=== PATIENT | female | born 1930 | race Caucasian/White ===

== ENCOUNTER 2017-10-25 12:39 | Emergency (ER) | payer OTHER ==
--- OUTSIDE RECORDS SUMMARY | 2017-10-25 12:42 | XMS REPORT ---
:1930 [facility] Address [address] [place], [place] [address]mayela Vila [address] [place] [id number] Care Team Providers Name Role Phone Cosme Pritchard Unavailable Unavailable Problems This patient has no known problems. Allergies, Adverse Reactions, Alerts This patient has no known allergies or adverse reactions. Medications This patient has no known medications. Results Test Description Test Time Test Comments Text Results Atomic Results Result Comments Accuchek 2017-04-07 13:59:00 Test Item Value Reference Range Comments Accuchek (test code=ACU) 136 mg/dL 70-110 [id number] 06:01:00 Test Item Value Reference Range Comments Accuchek (test code=ACU) 133 mg/dL 70-110 [id number] 05:08:00 Test Item Value Reference Range Comments Chemistry (test code=CREATT) 0.79 mg/dL 0.6-1.1 Chemistry (test 69 Reference Range for Estimated code=EGFRMDRD) GFR: Greater than 90 mL/min/1.73 m2NOTE:The MDRD equation has not been validated for use with theelderly (over 70 years of age), women, patientswith serious comorbid condition or persons with extremes ofbody size, muscle mass, or nutritional status. Hakpjbhdjs7587-54-46 04:52:00 Test Item Value Reference Range Comments Hematology (test code=HGBT) 9.3 g/dL 12.0-16.0 Hematology (test code=HCTT) 28.6 % 36.0-47.0 Hematology (test code=PLTT) 436 thou/uL 130-400 Gofeifmr5912-65-51 00:46:00 Test Item Value Reference Range Comments Accuchek (test code=ACU) 141 mg/dL 70-110 [id number] 18:25:00 Test Item Value Reference Range Comments Accuchek (test code=ACU) 133 mg/dL 70-110 Ceyuncjj7631-94-23 18:25:00 Test Item Value Reference Range Comments Accuchek (test code=ACU) 169 mg/dL 70-110 Vdfadxqx5028-48-40 18:25:00 Test Item Value Reference Range Comments Accuchek (test code=ACU) 119 mg/dL 70-110 Vlkspppo7936-90-31 18:25:00 Test Item Value Reference Range Comments Accuchek (test code=ACU) 143 mg/dL 70-110 Hiakcydi9573-25-09 18:25:00 Test Item Value Reference Range Comments Accuchek (test code=ACU) 178 mg/dL 70-110 [id number] 20:39:00 Test Item Value Reference Range Comments Accuchek (test code=ACU) 125 mg/dL 70-110 Vdccmvmn5573-09-64 08:36:00 Test Item Value Reference Range Comments Accuchek (test code=ACU) 144 mg/dL 70-110 Itevsxyn0653-70-84 08:36:00 Test Item Value Reference Range Comments Accuchek (test code=ACU) 141 mg/dL 70-110 Fnyjzymw3152-00-13 08:36:00 Test Item Value Reference Range Comments Accuchek (test code=ACU) 149 mg/dL 70-110 Culture, Tnynj5737-10-55 14:21:00 Test Item Value Reference Range Comments Culture, Blood (test code=BC) NG5 Inzmhsbzm3447-62-39 06:55:00 Test Item Value Reference Range Comments Chemistry (test code=CREATT) 0.74 mg/dL 0.6-1.1 Chemistry (test 75 Reference Range for Estimated code=EGFRMDRD) GFR: Greater than 90 mL/min/1.73 m2NOTE:The MDRD equation has not been validated for use with theelderly (over 70 years of age), women, patientswith serious comorbid condition or persons with extremes ofbody size, muscle mass, or nutritional status. [id number] 06:24:00 Test Item Value Reference Range Comments Hematology (test code=HGBT) 8.2 g/dL 12.0-16.0 Hematology (test code=HCTT) 24.4 % 36.0-47.0 Hematology (test code=PLTT) 376 thou/uL 130-400 Yfvydhlt4915-86-54 06:17:00 Test Item Value Reference Range Comments Accuchek (test code=ACU) 106 mg/dL 70-110 Rnhgerxs9075-30-16 00:16:00 Test Item Value Reference Range Comments Accuchek (test code=ACU) 144 mg/dL 70-110 [id number] 17:28:00 Test Item Value Reference Range Comments Accuchek (test code=ACU) 137 mg/dL 70-110 Lulmmevv2809-67-68 11:35:00 Test Item Value Reference Range Comments Accuchek (test code=ACU) 170 mg/dL 70-110 Jhlpkwys1412-60-40 06:13:00 Test Item Value Reference Range Comments Accuchek (test code=ACU) 114 mg/dL 70-110 [id number] 00:24:00 Test Item Value Reference Range Comments Accuchek (test code=ACU) 135 mg/dL 70-110 Yashyzosb3174-65-11 07:25:00 Test Item Value Reference Range Comments Chemistry (test code=CREATT) 0.71 mg/dL 0.6-1.1 Chemistry (test 78 Reference Range for Estimated code=EGFRMDRD) GFR: Greater than 90 mL/min/1.73 m2NOTE:The MDRD equation has not been validated for use with theelderly (over 70 years of age), women, patientswith serious comorbid condition or persons with extremes ofbody size, muscle mass, or nutritional status. Ptqqpmeuss0236-56-54 07:02:00 Test Item Value Reference Range Comments Hematology (test code=HGBT) 8.7 g/dL 12.0-16.0 Hematology (test code=HCTT) 26.6 % 36.0-47.0 Hematology (test code=PLTT) 366 thou/uL 130-400 Wzjpxsqx5204-02-00 06:43:00 Test Item Value Reference Range Comments Accuchek (test code=ACU) 102 mg/dL 70-110 Fxrnlnrm9918-23-98 00:31:00 Test Item Value Reference Range Comments Accuchek (test code=ACU) 143 mg/dL 70-110 Fohzppps8469-14-95 17:36:00 Test Item Value Reference Range Comments Accuchek (test code=ACU) 122 mg/dL 70-110 Ocwzezrh3753-33-52 11:11:00 Test Item Value Reference Range Comments Accuchek (test code=ACU) 165 mg/dL 70-110 Nvckwdpv0497-89-18 09:40:00 Test Item Value Reference Range Comments Accuchek (test code=ACU) 95 mg/dL 70-110 [id number] 01:58:00 Test Item Value Reference Range Comments Accuchek (test code=ACU) 140 mg/dL 70-110 Pkecftpu3174-54-72 18:19:00 Test Item Value Reference Range Comments Accuchek (test code=ACU) 133 mg/dL 70-110 Keojsrrt7737-74-52 13:00:00 Test Item Value Reference Range Comments Accuchek (test code=ACU) 155 mg/dL 70-110 [id number] 05:59:00 Test Item Value Reference Range Comments Chemistry (test code=NA-T) 133 mmol/L 136-145 Chemistry (test code=K-T) 3.8 mmol/L 3.5-5.1 Chemistry (test code=CL) 104 mmol/L 98-107 Chemistry (test code=CO2) 23 mmol/L 23-31 Chemistry (test code=ANGP) 10 mmol/L 10-20 Chemistry (test code=BUN) 22 mg/dL 9.8-20.1 Chemistry (test code=CREATT) 0.74 mg/dL 0.6-1.1 Chemistry (test 75 Reference Range for Estimated code=EGFRMDRD) GFR: Greater than 90 mL/min/1.73 m2NOTE:The MDRD equation has not been validated for use with theelderly (over 70 years of age), women, patientswith serious comorbid condition or persons with extremes ofbody size, muscle mass, or nutritional status. Chemistry (test code=GLU-T) 159 mg/dL 83-110 Chemistry (test code=CA) 8.4 mg/dL 7.8-10.44 Chemistry (test code=TBILI) 0.4 mg/dL 0.2-1.2 Chemistry (test code=TP) 6.4 g/dL 6.0-8.3 Chemistry (test code=ALB) 2.7 g/dL 3.4-4.8 Chemistry (test code=GLOB) 3.7 g/dL 2.4-3.5 Chemistry (test code=AG) 0.7 g/dL 1.2-2.2 Chemistry (test code=ALP) 102 U/L 40-150 Chemistry (test code=AST) 17 U/L 5-34 Chemistry (test code=ALT) 16 U/L 8-55 [id number] 05:46:00 Test Item Value Reference Range Comments Accuchek (test code=ACU) 166 mg/dL 70-110 Zdodlyubzy6184-76-33 05:31:00 Test Item Value Reference Range Comments Hematology (test code=HGBT) 8.8 g/dL 12.0-16.0 Hematology (test code=HCTT) 25.8 % 36.0-47.0 Hematology (test code=PLTT) 339 thou/uL 130-400 Dcdgcsiqzh4069-75-74 05:28:00 Test Item Value Reference Range Comments Hematology (test code=WBCT) 9.5 thou/uL 4.8-10.8 Hematology (test code=RBCT) 2.85 mill/uL 4.20-5.40 Hematology (test code=HGBT) 8.8 g/dL 12.0-16.0 Hematology (test code=HCTT) 25.6 % 36.0-47.0 Hematology (test code=MCV) 90.1 fl 81.0-99.0 Hematology (test code=MCH) 31.0 pg 27.0-31.0 Hematology (test code=MCHC) 34.4 g/dL 32.0-36.0 Hematology (test code=RDW) 15.2 % 11.5-14.5 Hematology (test code=PLTT) 331 thou/uL 130-400 Hematology (test code=MPV) 6.1 fL 7.4-10.4 Hematology (test code=%NEUT) 75.8 % 42.0-75.0 Hematology (test code=%LYMPH) 10.9 % 21.0-51.0 Hematology (test code=%MONO) 11.4 % 0.0-10.0 Hematology (test code=%EOS) 1.5 % 0.0-10.0 Hematology (test code=%BASO) 0.4 % 0.0-1.0 Hematology (test code=NEUT#) 7.2 thou/uL 1.40-6.50 Hematology (test code=LYMPH#) 1.0 thou/uL 1.20-3.40 Hematology (test code=MONO#) 1.1 thou/uL 0.11-0.59 Hematology (test code=EOS#) 0.1 thou/uL 0.0-0.7 Hematology (test code=BASO#) 0.0 thou/uL 0.0-0.2 [id number] 05:25:00 Test Item Value Reference Range Comments Accuchek (test code=ACU) 151 mg/dL 70-110 [id number] 18:43:00 Test Item Value Reference Range Comments Chemistry (test 0.021 ng/mL < 0.028 code=TROPI-T) Reference Range 0.00 - 0.028 ng/mL Negative 0.029 - 0.29 ng/mL Indeterminate Greater or Equal to 0.3 ng/mL Strongly suggests [place] [id number] 18:02:00 Test Item Value Reference Range Comments Accuchek (test code=ACU) 127 mg/dL 70-110 [id number] 16:42:00 Test Item Value Reference Range Comments Accuchek (test code=ACU) 166 mg/dL 70-110 Ltagbebta5638-81-24 13:59:00 Test Item Value Reference Range Comments Chemistry (test 0.016 ng/mL < 0.028 code=TROPI-T) Reference Range 0.00 - 0.028 ng/mL Negative 0.029 - 0.29 ng/mL Indeterminate Greater or Equal to 0.3 ng/mL Strongly suggests [place] Khyyidszg9695-06-79 13:37:00 Test Item Value Reference Range Comments Chemistry (test 0.7 ng/mL 0-6.6 code=CKMBM-T) Chemistry (test 0.010 ng/mL < 0.028 code=TROPI-T) Reference Range 0.00 - 0.028 ng/mL Negative 0.029 - 0.29 ng/mL Indeterminate Greater or Equal to 0.3 ng/mL Strongly suggests [place] [id number] 13:28:00 Test Item Value Reference Range Comments Coagulation (test 16.3 SEC 12.0-14.7 code=PT-T) Coagulation (test 1.3 ATTENTION: READ code=INR) CAREFULLY -The recommended therapeutic ranges for oral anticoagulanttreatments are: Low Intensity: 1.5 - 2.0 Moderate Intensity: 2.0 - 3.0 High Intensity (1): 2.5 - 3.5 High Intensity (2): 3.0 - 4.0 CRITICAL: > 4.0 Coagulation (test 34.2 SEC 22.9-36.1 code=PTT) Anticoagulant? OTHER; SEE HBRXRRPVAgkaopgnb0947-35-89 13:23:00 Test Item Value Reference Range Comments Chemistry (test code=NA-T) 131 mmol/L 136-145 Chemistry (test code=K-T) 4.1 mmol/L 3.5-5.1 Chemistry (test code=CL) 101 mmol/L 98-107 Chemistry (test code=CO2) 22 mmol/L 23-31 Chemistry (test code=ANGP) 12 mmol/L 10-20 Chemistry (test code=BUN) 22 mg/dL 9.8-20.1 Chemistry (test code=CREATT) 0.71 mg/dL 0.6-1.1 Chemistry (test 78 Reference Range for Estimated code=EGFRMDRD) GFR: Greater than 90 mL/min/1.73 m2NOTE:The MDRD equation has not been validated for use with theelderly (over 70 years of age), women, patientswith serious comorbid condition or persons with extremes ofbody size, muscle mass, or nutritional status. Chemistry (test code=GLU-T) 178 mg/dL 83-110 Chemistry (test code=CA) 8.5 mg/dL 7.8-10.44 Chemistry (test code=TBILI) 0.4 mg/dL 0.2-1.2 Chemistry (test code=TP) 6.9 g/dL 6.0-8.3 Chemistry (test code=ALB) 2.9 g/dL 3.4-4.8 Chemistry (test code=GLOB) 4.0 g/dL 2.4-3.5 Chemistry (test code=AG) 0.7 g/dL 1.2-2.2 Chemistry (test code=ALP) 106 U/L 40-150 Chemistry (test code=AST) 23 U/L 5-34 Chemistry (test code=ALT) 19 U/L 8-55 Chemistry - BNP, HgbA1c, [id number] 13:22:00 Test Item Value Reference Range Comments Chemistry - BNP, HgbA1c, PTHi (test code=BNP) 523.5 pg/mL 0-100 [id number] 12:54:00 Test Item Value Reference Range Comments Hematology (test code=WBCT) 12.7 thou/uL 4.8-10.8 Hematology (test code=RBCT) 3.22 mill/uL 4.20-5.40 Hematology (test code=HGBT) 9.6 g/dL 12.0-16.0 Hematology (test code=HCTT) 29.2 % 36.0-47.0 Hematology (test code=MCV) 90.5 fl 81.0-99.0 Hematology (test code=MCH) 29.8 pg 27.0-31.0 Hematology (test code=MCHC) 33.0 g/dL 32.0-36.0 Hematology (test code=RDW) 15.5 % 11.5-14.5 Hematology (test code=PLTT) 398 thou/uL 130-400 Hematology (test code=MPV) 6.5 fL 7.4-10.4 Hematology (test code=%NEUT) 88.3 % 42.0-75.0 Hematology (test code=%LYMPH) 4.6 % 21.0-51.0 Hematology (test code=%MONO) 6.2 % 0.0-10.0 Hematology (test code=%EOS) 0.6 % 0.0-10.0 Hematology (test code=%BASO) 0.2 % 0.0-1.0 Hematology (test code=NEUT#) 11.2 thou/uL 1.40-6.50 Hematology (test code=LYMPH#) 0.6 thou/uL 1.20-3.40 Hematology (test code=MONO#) 0.8 thou/uL 0.11-0.59 Hematology (test code=EOS#) 0.1 thou/uL 0.0-0.7 Hematology (test code=BASO#) 0.0 thou/uL 0.0-0.2 [id number] 11:20:00 Test Item Value Reference Range Comments Accuchek (test code=ACU) 178 mg/dL 70-110 Tsrxyblu6660-66-57 06:10:00 Test Item Value Reference Range Comments Accuchek (test code=ACU) 141 mg/dL 70-110 Xynmxpas9740-97-37 00:31:00 Test Item Value Reference Range Comments Accuchek (test code=ACU) 135 mg/dL 70-110 [id number] 16:48:00 Test Item Value Reference Range Comments Accuchek (test code=ACU) 129 mg/dL 70-110 [id number] 11:16:00 Test Item Value Reference Range Comments Accuchek (test code=ACU) 161 mg/dL 70-110 Lzsbdtma1772-90-76 06:17:00 Test Item Value Reference Range Comments Accuchek (test code=ACU) 134 mg/dL 70-110 Ewuujnvj4701-60-84 00:52:00 Test Item Value Reference Range Comments Accuchek (test code=ACU) 137 mg/dL 70-110 Bazskbsf5539-43-90 18:38:00 Test Item Value Reference Range Comments Accuchek (test code=ACU) 145 mg/dL 70-110 Uifkoyug0045-02-81 12:49:00 Test Item Value Reference Range Comments Accuchek (test code=ACU) 118 mg/dL 70-110 [id number] 06:25:00 Test Item Value Reference Range Comments Chemistry (test code=NA-T) 139 mmol/L 136-145 Chemistry (test code=K-T) 3.6 mmol/L 3.5-5.1 Chemistry (test code=CL) 106 mmol/L 98-107 Chemistry (test code=CO2) 26 mmol/L 23-31 Chemistry (test code=ANGP) 11 mmol/L 10-20 Chemistry (test code=BUN) 22 mg/dL 9.8-20.1 Chemistry (test code=CREATT) 0.70 mg/dL 0.6-1.1 Chemistry (test 80 Reference Range for Estimated code=EGFRMDRD) GFR: Greater than 90 mL/min/1.73 m2NOTE:The MDRD equation has not been validated for use with theelderly (over 70 years of age), women, patientswith serious comorbid condition or persons with extremes ofbody size, muscle mass, or nutritional status. Chemistry (test code=BCR) 31.43 Chemistry (test code=GLU-T) 114 mg/dL 83-110 Chemistry (test code=CA) 8.3 mg/dL 7.8-10.44 Chemistry (test code=ALB) 2.7 g/dL 3.4-4.8 Chemistry (test code=PHOS) 2.9 mg/dL 2.3-4.7 Bljnbpjqj0299-27-24 06:25:00 Test Item Value Reference Range Comments Chemistry (test code=MG) 1.9 mg/dL 1.6-2.6 Ataynxtafh0937-37-25 06:08:00 Test Item Value Reference Range Comments Hematology (test code=HGBT) 9.3 g/dL 12.0-16.0 Hematology (test code=HCTT) 28.4 % 36.0-47.0 Hematology (test code=PLTT) 377 thou/uL 130-400 Nqlxtarc7933-53-30 05:50:00 Test Item Value Reference Range Comments Accuchek (test code=ACU) 125 mg/dL 70-110 [id number] 23:30:00 Test Item Value Reference Range Comments Accuchek (test code=ACU) 117 mg/dL 70-110 [id number] 18:12:00 Test Item Value Reference Range Comments Accuchek (test code=ACU) 133 mg/dL 70-110 Culture, [id number] 14:36:00 Test Item Value Reference Range Comments Culture, Urine (test code=URC) NG36 Ysegsyxk5033-97-19 11:32:00 Test Item Value Reference Range Comments Accuchek (test code=ACU) 96 mg/dL 70-110 Qebcjzco9164-12-01 05:52:00 Test Item Value Reference Range Comments Accuchek (test code=ACU) 100 mg/dL 70-110 [id number] 05:02:00 Test Item Value Reference Range Comments Chemistry (test code=NA-T) 136 mmol/L 136-145 Chemistry (test code=K-T) 3.5 mmol/L 3.5-5.1 Chemistry (test code=CL) 104 mmol/L 98-107 Chemistry (test code=CO2) 25 mmol/L 23-31 Chemistry (test code=ANGP) 11 mmol/L 10-20 Chemistry (test code=BUN) 22 mg/dL 9.8-20.1 Chemistry (test code=CREATT) 0.64 mg/dL 0.6-1.1 Chemistry (test 88 Reference Range for Estimated code=EGFRMDRD) GFR: Greater than 90 mL/min/1.73 m2NOTE:The MDRD equation has not been validated for use with theelderly (over 70 years of age), women, patientswith serious comorbid condition or persons with extremes ofbody size, muscle mass, or nutritional status. Chemistry (test code=GLU-T) 116 mg/dL 83-110 Chemistry (test code=CA) 8.1 mg/dL 7.8-10.44 Npvyisqmyb5562-57-16 04:53:00 Test Item Value Reference Range Comments Hematology (test code=WBCT) 7.0 thou/uL 4.8-10.8 Hematology (test code=RBCT) 2.99 mill/uL 4.20-5.40 Hematology (test code=HGBT) 8.9 g/dL 12.0-16.0 Hematology (test code=HCTT) 26.9 % 36.0-47.0 Hematology (test code=MCV) 90.1 fl 81.0-99.0 Hematology (test code=MCH) 29.9 pg 27.0-31.0 Hematology (test code=MCHC) 33.2 g/dL 32.0-36.0 Hematology (test code=RDW) 15.4 % 11.5-14.5 Hematology (test code=PLTT) 318 thou/uL 130-400 Hematology (test code=MPV) 6.1 fL 7.4-10.4 Hematology (test code=%NEUT) 73.4 % 42.0-75.0 Hematology (test code=%LYMPH) 11.6 % 21.0-51.0 Hematology (test code=%MONO) 9.0 % 0.0-10.0 Hematology (test code=%EOS) 5.4 % 0.0-10.0 Hematology (test code=%BASO) 0.5 % 0.0-1.0 Hematology (test code=NEUT#) 5.1 thou/uL 1.40-6.50 Hematology (test code=LYMPH#) 0.8 thou/uL 1.20-3.40 Hematology (test code=MONO#) 0.6 thou/uL 0.11-0.59 Hematology (test code=EOS#) 0.4 thou/uL 0.0-0.7 Hematology (test code=BASO#) 0.0 thou/uL 0.0-0.2 [id number] 00:26:00 Test Item Value Reference Range Comments Accuchek (test code=ACU) 116 mg/dL 70-110 Istcyfay1718-78-07 18:27:00 Test Item Value Reference Range Comments Accuchek (test code=ACU) 132 mg/dL 70-110 Qpdvilpe2178-20-40 12:06:00 Test Item Value Reference Range Comments Accuchek (test code=ACU) 148 mg/dL 70-110 Ilwmjmzq4544-34-49 06:07:00 Test Item Value Reference Range Comments Accuchek (test code=ACU) 152 mg/dL 70-110 [id number] 05:34:00 Test Item Value Reference Range Comments Chemistry (test 0.036 ng/mL < 0.028 code=TROPI-T) Reference Range 0.00 - 0.028 ng/mL Negative 0.029 - 0.29 ng/mL Indeterminate Greater or Equal to 0.3 ng/mL Strongly suggests [place] Zdiezyhvtc1604-78-32 03:40:00 Test Item Value Reference Range Comments Urinalysis (test code=UACLR) YELLOW Yellow Urinalysis (test code=UACLY) CLEAR Clear Urinalysis (test code=SPGR) 1.015 1.002-1.036 Urinalysis (test code=DAFNE) 7.5 5.0-9.0 Urinalysis (test code=UALEU) Negative Negative Urinalysis (test code=UANIT) Negative Negative Urinalysis (test code=PROUADIP) Trace mg/dL Neg-Trace Urinalysis (test code=GLUCU) Negative mg/dL Negative Urinalysis (test code=KETU) Negative mg/dL Negative Urinalysis (test code=UAUROB) 0.2 mg/dL 0.2-1.0 Urinalysis (test code=UABIL) Negative Negative Urinalysis (test code=UABLD) Trace Negative Urinalysis (test code=UARBC) 4-6 HPF 0-3 Urinalysis (test code=UAWBC) None Seen HPF 0-3 Urinalysis (test code=UASQUAM) None Seen HPF 0-3 Urinalysis (test code=UABAC) None Seen HPF None Seen Urinalysis (test code=UACAST) 0-3 HYALINE CAST LPF 0-3 Hyaline Comment patient arrived to floor with foleyUrine Source: Urine Snow MhnswalfRttncmxvl5956-64-07 02:18:00 Test Item Value Reference Range Comments Chemistry (test 134 mmol/L 136-145 code=NA-T) Chemistry (test code=K-T) 3.5 mmol/L 3.5-5.1 Chemistry (test code=CL) 103 mmol/L 98-107 Chemistry (test code=CO2) 21 mmol/L 23-31 Chemistry (test 14 mmol/L 10-20 code=ANGP) Chemistry (test code=BUN) 28 mg/dL 9.8-20.1 Chemistry (test 0.62 mg/dL 0.6-1.1 code=CREATT) Chemistry (test Greater than 90 Reference Range for code=EGFRMDRD) Estimated GFR: Greater than 90 mL/min/1.73 m2NOTE:The MDRD equation has not been validated for use with theelderly (over 70 years of age), women, patientswith serious comorbid condition or persons with extremes ofbody size, muscle mass, or nutritional status. Chemistry (test 105 mg/dL 83-110 code=GLU-T) Chemistry (test code=CA) 8.3 mg/dL 7.8-10.44 Chemistry (test 0.3 mg/dL 0.2-1.2 code=TBILI) Chemistry (test code=TP) 6.3 g/dL 6.0-8.3 Chemistry (test code=ALB) 2.8 g/dL 3.4-4.8 Chemistry (test 3.5 g/dL 2.4-3.5 code=GLOB) Chemistry (test code=AG) 0.8 g/dL 1.2-2.2 Chemistry (test code=ALP) 90 U/L 40-150 Chemistry (test code=AST) 34 U/L 5-34 Chemistry (test code=ALT) 41 U/L 8-55 [id number] 02:14:00 Test Item Value Reference Range Comments Chemistry (test 0.041 ng/mL < 0.028 code=TROPI-T) Reference Range 0.00 - 0.028 ng/mL Negative 0.029 - 0.29 ng/mL Indeterminate Greater or Equal to 0.3 ng/mL Strongly suggests [place] Ucvmbqsdiv7714-14-60 01:49:00 Test Item Value Reference Range Comments Hematology (test code=WBCT) 9.2 thou/uL 4.8-10.8 Hematology (test code=RBCT) 3.20 mill/uL 4.20-5.40 Hematology (test code=HGBT) 9.3 g/dL 12.0-16.0 Hematology (test code=HCTT) 28.6 % 36.0-47.0 Hematology (test code=MCV) 89.3 fl 81.0-99.0 Hematology (test code=MCH) 29.0 pg 27.0-31.0 Hematology (test code=MCHC) 32.5 g/dL 32.0-36.0 Hematology (test code=RDW) 15.1 % 11.5-14.5 Hematology (test code=PLTT) 338 thou/uL 130-400 Hematology (test code=MPV) 6.1 fL 7.4-10.4 Hematology (test code=%NEUT) 76.9 % 42.0-75.0 Hematology (test code=%LYMPH) 11.6 % 21.0-51.0 Hematology (test code=%MONO) 6.6 % 0.0-10.0 Hematology (test code=%EOS) 4.7 % 0.0-10.0 Hematology (test code=%BASO) 0.2 % 0.0-1.0 Hematology (test code=NEUT#) 7.0 thou/uL 1.40-6.50 Hematology (test code=LYMPH#) 1.1 thou/uL 1.20-3.40 Hematology (test code=MONO#) 0.6 thou/uL 0.11-0.59 Hematology (test code=EOS#) 0.4 thou/uL 0.0-0.7 Hematology (test code=BASO#) 0.0 thou/uL 0.0-0.2
[2017-10-25 13:51] LABS: Urine Blood NEGATIVE (NEG); Urine Glucose NEGATIVE (NEG); Urine Protein NEGATIVE (NEG); Urine Specific Gravity 1.015 (1.005-1.030)
--- NOTE | 2017-10-25 14:42 | RAD REPORT ---
EXAM DESCRIPTION: RAD - Chest Single View - 10/25/2017 2:07 pm CLINICAL HISTORY: Cough and congestion COMPARISON: October 21 TECHNIQUE: AP portable chest image was obtained 1357 hours . FINDINGS: Lung volumes are low. Right hemithorax volume is further reduced due to patient rotation. Lung markings are not substantially different. There is continued reticulonodular opacification throu ghout much of the right lung field. No new mass or consolidation. No failure finding. Heart and vascu lature are normal. No measurable pleural effusion and no pneumothorax. No gross bony abnormality seen . No acute aortic finding. Right-side mediastinum is accentuated by the respiratory and rotation yariel facts. IMPRESSION: Prominent reticulonodular opacification pattern of the right lung field similar to prior imaging. No new or progressive finding from October 21.
[2017-10-25 15:00] LABS: Absolute Lymphocytes (CBC) 0.7 K/uL (0.7-4.9); Absolute Neutrophil 8.1 K/uL (1.8-8.0); Basophils % 0.7 % (0-1.3); Eosinophils % 1.6 % (0-4.4); Hematocrit 33.4 % (36.0-45.0); Lymphocytes % 6.7 % (15.3-44.8); MCH 30.5 pg (27.0-35.0); MCV 89.3 fL (80-100); MPV 7.8 fL (7.6-11.3); RBC Red Blood Cell Count 3.74 M/uL (3.86-4.86)
[2017-10-25 15:04] LABS: Protime INR 1.56
[2017-10-25 15:18] LABS: Potassium 4.7 mEq/L (3.6-5.0)
[2017-10-25 15:24] LABS: Albumin 3.6 g/dL (3.2-5.5); Bilirubin Direct 0.1 mg/dL (0-0.2); Bilirubin Total 0.7 mg/dL (0.3-1.2); Blood Morphology Comment NOT SEEN (NOT SEEN); Platelet Estimate ADEQ; Protein, Total 7.7 g/dL (6.0-8.3); Urine White Blood Cell Casts OK
--- NOTE | 2017-10-25 15:53 | EDPHYS ---
Physician Documentation [facility] Name: Ghislaine Sanchez Age: 86 yrs Sex: Female : 1930 Arrival Date: 10/25/2017 Time: 12:43 Bed 24 Private MD: ED Physician Jose Fuentes HPI: 10/25 13:50 This 86 yrs old Female presents to ER via Wheelchair with complaints of Back rn Pain. 13:50 The patient presents with pain that is acute. The symptoms are located in the low back. rn The pain does not radiate. Associated signs and symptoms: Pertinent positives: weakness, cough. Severity of symptoms: At their worst the symptoms were mild, in the emergency department the symptoms are unchanged. The patient has experienced similar episodes in the past. Report cough, finished abx last week, got better, now coughing again, hx of pneumonias and aspiration, no oral intake, + intermittent fever, had normal cxr 3 days ago, seen by pcp today, told to come here for further eval. . Historical: - Allergies: 13:14 Sulfa (Sulfonamide Antibiotics); lk1 - Home Meds: 15:29 levothyroxine 25 mcg oral tab 1 tab once daily [Active]; Eliquis 2.5 mg Oral tab 1 tab tl3 2 times per day [Active]; levalbuterol HCl 0.63 mg/3 mL inhalation nebu 3 mL every 8 hours [Active]; Administer all PO tabs/caps to G-tube [Active]; Multaq 400 mg oral tab 1 tab 2 times per day [Active]; clonazepam 0.5 mg Oral tab 1 tab 2 times per day [Active]; bupropion HCl 100 mg Oral tab 1 tab [Active]; amoxicillin-pot clavulanate 600-42.9 mg/5 mL oral susr twice a day [Active]; - PMHx: 13:14 ADD/ADHD; Anemia; Atrial Fib; CVA; Dementia; DYSPHAGIA; High Cholesterol; Hypertension; lk1 Hypothyroidism; Myocardial infarction; peptic ulcer; - PSHx: 13:14 malou mastectomy; G-tube; lk1 - Immunization history:: Adult Immunizations up to date. - Social history:: Smoking status: Patient/guardian denies using tobacco. - Family history:: not pertinent. - Hospitalizations: : No recent hospitalization is reported. ROS: 13:50 Constitutional: Negative for chills, and weight loss, Eyes: Negative for injury, pain, rn redness, and discharge, Neck: Negative for injury, pain, and swelling, Cardiovascular: Negative for chest pain, palpitations, and edema, Respiratory: Negative for wheezing, and pleuritic chest pain, Abdomen/GI: Negative for abdominal pain, nausea, vomiting, diarrhea, and constipation, Back: Negative for injury MS/Extremity: Negative for injury and deformity, Skin: Negative for injury, rash, and discoloration, Neuro: Negative for headache, numbness, tingling, and seizure. Exam: 13:50 Constitutional: This is a well developed, well nourished patient who is awake, alert, rn and in no acute distress. Head/Face: Normocephalic, atraumatic. Eyes: Pupils equal round and reactive to light, extra-ocular motions intact. Lids and lashes normal. Conjunctiva and sclera are non-icteric and not injected. Cornea within normal limits. Periorbital areas with no swelling, redness, or edema. Neck: Trachea midline, no thyromegaly or masses palpated, and no cervical lymphadenopathy. Supple, full range of motion without nuchal rigidity, or vertebral point tenderness. No Meningismus. Cardiovascular: Regular rate and rhythm with a normal S1 and S2. No gallops, murmurs, or rubs. Normal PMI, no JVD. No pulse deficits. Respiratory: Lungs have equal breath sounds bilaterally, clear to auscultation and percussion. No rales, rhonchi or wheezes noted. No increased work of breathing, no retractions or nasal flaring. Abdomen/GI: Soft, non-tender, with normal bowel sounds. No distension or tympany. No guarding or rebound. No evidence of tenderness throughout. + mild amount of clear/white drainage from PEG tube stoma. MS/ Extremity: Pulses equal, no cyanosis. Neurovascular intact. Full, normal range of motion. Equal circumference. Neuro: Awake and alert, GCS 15, oriented to person, and situation. Motor strength 5/5 in all extremities. Sensory grossly intact. Vital Signs: 13:15 BP 105 / 52; Pulse 96; Resp 15; Temp 97.6(TE); Pulse Ox 96% on R/A; Weight 49.9 kg (R); lk1 Height 5 ft. 3 in. (160.02 cm) (R); Pain 5/10; 14:30 BP 121 / 56; Pulse 94; Resp 16; Pulse Ox 98% on R/A; tl3 15:29 BP 120 / 59; Pulse 82; Resp 18; Pulse Ox 98% on R/A; tl3 13:15 Body Mass Index 19.49 (49.90 kg, 160.02 cm) lk1 MDM: 13:28 Patient medically screened. rn 15:51 Differential diagnosis: chronic back pain, UTI, dehydration, pneumonia, chronic rn aspiration. Data reviewed: vital signs, nurses notes, lab test result(s), radiologic studies, plain films, and as a result, I will discharge patient. Counseling: I had a detailed discussion with the patient and/or guardian regarding: the historical points, exam findings, and any diagnostic results supporting the discharge/admit diagnosis, lab results, radiology results, the need for outpatient follow up, to return to the emergency department if symptoms worsen or persist or if there are any questions or concerns that arise at home. Special discussion: I discussed with the patient/guardian in detail that at this point there is no indication for admission to the hospital. It is understood, however, that if the symptoms persist or worsen the patient needs to return immediately for re-evaluation. ED course: CXR without acute change, UA normal, + mild dehydration, improved with fluids, may explain thick phlegm, also patient already on abx, will f/u with pcp. . 10/25 13:47 Order name: Urine Dipstick--Ancillary (enter results); Complete Time: 14:53 bd 10/25 13:49 Order name: CBC with Diff; Complete Time: 15:36 rn 10/25 13:29 Order name: XRAY Chest (1 view); Complete Time: 14:53 rn 10/25 13:49 Order name: Basic Metabolic Panel; Complete Time: 15:36 rn 10/25 13:49 Order name: Procalcitonin; Complete Time: 15:47 rn 10/25 13:49 Order name: Blood Culture Adult (2) rn 10/25 13:50 Order name: PT-INR; Complete Time: 15:36 rn 10/25 13:50 Order name: Ptt, Activated; Complete Time: 15:36 rn 10/25 13:50 Order name: LFT's; Complete Time: 15:36 rn 10/25 15:04 Order name: CBC Smear Scan; Complete Time: 15:36 EDMS 10/25 13:29 Order name: Urine Dipstick-Ancillary (obtain specimen); Complete Time: 15:37 rn 10/25 13:49 Order name: IV Start; Complete Time: 15:37 rn Administered Medications: 15:54 Drug: NS 0.9% 500 ml Route: IV; Rate: bolus; Site: right antecubital; tl3 16:37 Follow up: IV Status: Completed infusion; IV Intake: 500ml tl3 Disposition: 10/25/17 15:53 Discharged to Home. Impression: Dehydration. - Condition is Stable. - Discharge Instructions: Dehydration, Elderly. - Medication Reconciliation Form, Thank You Letter, Antibiotic Education, Prescription Opioid Use form. - Follow up: Private Physician; When: As needed; Reason: Recheck today's complaints, Re-evaluation by your physician. - Problem is new. - Symptoms have improved. Signatures: Dispatcher [employer] EDMS Jose Fuentes MD MD rn Kluge, Leah RN RN lk1 Sherry Campo, RACHELL RN tl3 Corrections: (The following items were deleted from the chart) 15:37 13:29 UA MICROSCOPIC+U.LAB.BRZ ordered. EDMS EDMS 15:37 13:29 Urine Culture+BA.LAB.BRZ ordered. EDMS EDMS
--- NOTE | 2017-10-25 15:53 | ER ---
Nurse's Notes [facility] Name: Ghislaine Sanchez Age: 86 yrs Sex: Female : 1930 Arrival Date: 10/25/2017 Time: 12:43 Bed 24 Private MD: Diagnosis: Dehydration Presentation: 10/25 13:11 Presenting complaint: Child states: "She has a feeding tube. She has been coughing a lk1 lot and is not able to swallow phlegm. Dr. Valencia had her Xrayed last Tuesday. She has a pain in her back when she breaths in. Her urine is dark and smells bad. We just wanted to check her out for pneumonia.". Transition of care: patient was not received from another setting of care. Onset of symptoms was October 11, 2017. Care prior to arrival: None. 13:11 Method Of Arrival: Wheelchair lk1 13:11 Acuity: SHELDON 3 lk1 Triage Assessment: 13:14 General: Appears in no apparent distress. Behavior is calm, cooperative, appropriate lk1 for age. Pain: Complains of pain in right flank Pain currently is 5 out of 10 on a pain scale. Musculoskeletal: Swelling absent. Historical: - Allergies: 13:14 Sulfa (Sulfonamide Antibiotics); lk1 - Home Meds: 15:29 levothyroxine 25 mcg oral tab 1 tab once daily [Active]; Eliquis 2.5 mg Oral tab 1 tab tl3 2 times per day [Active]; levalbuterol HCl 0.63 mg/3 mL inhalation nebu 3 mL every 8 hours [Active]; Administer all PO tabs/caps to G-tube [Active]; Multaq 400 mg oral tab 1 tab 2 times per day [Active]; clonazepam 0.5 mg Oral tab 1 tab 2 times per day [Active]; bupropion HCl 100 mg Oral tab 1 tab [Active]; amoxicillin-pot clavulanate 600-42.9 mg/5 mL oral susr twice a day [Active]; - PMHx: 13:14 ADD/ADHD; Anemia; Atrial Fib; CVA; Dementia; DYSPHAGIA; High Cholesterol; Hypertension; lk1 Hypothyroidism; Myocardial infarction; peptic ulcer; - PSHx: 13:14 malou mastectomy; G-tube; lk1 - Immunization history:: Adult Immunizations up to date. - Social history:: Smoking status: Patient/guardian denies using tobacco. - Family history:: not pertinent. - Hospitalizations: : No recent hospitalization is reported. Screenin:48 Abuse screen: Denies threats or abuse. Nutritional screening: No deficits noted. tl3 Tuberculosis screening: No symptoms or risk factors identified. Fall Risk None identified. Assessment: 13:48 General: Appears in no apparent distress. comfortable, slender, well groomed, well tl3 developed, well nourished, Behavior is calm, cooperative, appropriate for age. Pain: Denies pain. Neuro: Level of Consciousness is awake, alert, obeys commands, Oriented to person, place, time, situation, Appropriate for age. Cardiovascular: Heart tones S1 S2 present. Respiratory: Breath sounds are clear bilaterally. with crackles noted to the right base. GI: Bowel sounds present X 4 quads. : No signs and/or symptoms were reported regarding the genitourinary system. Urine is clear. EENT: No signs and/or symptoms were reported regarding the EENT system. Derm: Musculoskeletal: No signs and/or symptoms reported regarding the musculoskeletal system. 14:30 Reassessment: Patient appears in no apparent distress at this time. No changes from tl3 previously documented assessment. Patient and/or family updated on plan of care and expected duration. Pain level reassessed. Patient is alert, oriented x 3, equal unlabored respirations, skin warm/dry/pink. Vital Signs: 13:15 BP 105 / 52; Pulse 96; Resp 15; Temp 97.6(TE); Pulse Ox 96% on R/A; Weight 49.9 kg (R); lk1 Height 5 ft. 3 in. (160.02 cm) (R); Pain 5/10; 14:30 BP 121 / 56; Pulse 94; Resp 16; Pulse Ox 98% on R/A; tl3 15:29 BP 120 / 59; Pulse 82; Resp 18; Pulse Ox 98% on R/A; tl3 13:15 Body Mass Index 19.49 (49.90 kg, 160.02 cm) lk1 ED Course: 12:43 Patient arrived in ED. mr 13:13 Triage completed. lk1 13:17 Arm band placed on right wrist. lk1 13:28 Jose Fuentes MD is Attending Physician. rn 13:48 Alber, Sherry, RN is Primary Nurse. tl3 13:48 No apparent distress. Resting quietly. tl3 13:48 Patient has correct armband on for positive identification. Placed in gown. Bed in low tl3 position. Call light in reach. Side rails up X 1. Adult w/ patient. Pulse ox on. NIBP on. Warm blanket given. 13:48 No provider procedures requiring assistance completed. tl3 13:51 X-ray(s) taken. tl3 14:00 XRAY Chest (1 view) In Process Unspecified. EDMS 14:01 Note: tolerated x ray, not appropriate dressed for cxr , best images obtained. 14:30 Initial lab(s) drawn, by me, sent to lab. Inserted saline lock: 22 gauge in right tl3 antecubital area, using aseptic technique. Blood collected. 19:12 IV discontinued, intact, bleeding controlled, No redness/swelling at site. Pressure tl3 dressing applied. Administered Medications: 15:54 Drug: NS 0.9% 500 ml Route: IV; Rate: bolus; Site: right antecubital; tl3 16:37 Follow up: IV Status: Completed infusion; IV Intake: 500ml tl3 Intake: 16:37 IV: 500ml; Total: 500ml. tl3 Outcome: 15:53 Discharge ordered by . rn 16:37 Patient left the ED. tl3 19:12 Discharged to home via wheelchair. tl3 19:12 Condition: stable 19:12 Discharge instructions given to patient, family, Instructed on discharge instructions, follow up and referral plans. Demonstrated understanding of instructions, follow-up care, stressed importance of staying hydrated Signatures: Dispatcher [employer] [facility] Jovita Gentile Roman, MD MD rn Warren, Shannon sw Kluge, Leah, RN RN lk1 Sherry Campo, RN RN tl3 Corrections: (The following items were deleted from the chart) 14:12 13:48 Respiratory: Breath sounds are clear bilaterally. tl3 tl3
[2017-10-25] MEDS ORDERED: NA CHLORIDE 0.9% 500 ML ONE (16:09)
[2017-10-25 16:48] VITALS: TEMP 97.6
[2017-10-25 16:49] VITALS: O2SAT 98
[2017-10-25 16:50] VITALS: BP 120/59
== END 2017-10-25 16:37 | disposition home or self-care (01) ==
LOC: ER 12:39
DX: F03.90 Unspecified dementia, unspecified severity, without behavioral disturbance, psychotic disturbance, mood disturbance, and anxiety; I25.2 Old myocardial infarction; I10 Essential (primary) hypertension; Z86.73 Personal history of transient ischemic attack (TIA), and cerebral infarction without residual deficits; E86.0 Dehydration; Z88.2 Allergy status to sulfonamides; E78.00 Pure hypercholesterolemia, unspecified; M54.5 Low back pain; I48.91 Unspecified atrial fibrillation; Z79.02 Long term (current) use of antithrombotics/antiplatelets; E03.9 Hypothyroidism, unspecified
CPT/HCPCS: 36415; 71045; 80048; 80076; 81003; 84145; 85025; 85610; 85730; 87040; 96360; 99284

== ENCOUNTER 2018-02-18 12:52 | Emergency (ER) | payer OTHER ==
--- OUTSIDE RECORDS SUMMARY | 2018-02-18 12:55 | XMS REPORT ---
:1930 [facility] Address [address] [place], [place] [address]mayela Vila [address] [place] [id number] Care Team Providers Name Role Phone Aly Pritchard Unavailable Unavailable Problems This patient has no known problems. Allergies, Adverse Reactions, Alerts This patient has no known allergies or adverse reactions. Medications This patient has no known medications. Results Test Description Test Time Test Comments Text Results Atomic Results Result Comments Accuchek 2017-04-07 13:59:00 Test Item Value Reference Range Comments Accuchek (test code=ACU) 136 mg/dL 70-110 [id number] 06:01:00 Test Item Value Reference Range Comments Accuchek (test code=ACU) 133 mg/dL 70-110 [id number] 05:08:00 Test Item Value Reference Range Comments Chemistry (test code=CREATT) 0.79 mg/dL 0.6-1.1 Chemistry (test 69 Reference Range for Estimated code=EGFRMDRD) GFR: Greater than 90 mL/min/1.73 m2NOTE:The MDRD equation has not been validated for use with theelderly (over 70 years of age), women, patientswith serious comorbid condition or persons with extremes ofbody size, muscle mass, or nutritional status. [id number] 04:52:00 Test Item Value Reference Range Comments Hematology (test code=HGBT) 9.3 g/dL 12.0-16.0 Hematology (test code=HCTT) 28.6 % 36.0-47.0 Hematology (test code=PLTT) 436 thou/uL 130-400 [id number] 00:46:00 Test Item Value Reference Range Comments Accuchek (test code=ACU) 141 mg/dL 70-110 [id number] 18:25:00 Test Item Value Reference Range Comments Accuchek (test code=ACU) 133 mg/dL 70-110 [id number] 18:25:00 Test Item Value Reference Range Comments Accuchek (test code=ACU) 169 mg/dL 70-110 [id number] 18:25:00 Test Item Value Reference Range Comments Accuchek (test code=ACU) 119 mg/dL 70-110 [id number] 18:25:00 Test Item Value Reference Range Comments Accuchek (test code=ACU) 143 mg/dL 70-110 [id number] 18:25:00 Test Item Value Reference Range Comments Accuchek (test code=ACU) 178 mg/dL 70-110 [id number] 20:39:00 Test Item Value Reference Range Comments Accuchek (test code=ACU) 125 mg/dL 70-110 [id number] 08:36:00 Test Item Value Reference Range Comments Accuchek (test code=ACU) 144 mg/dL 70-110 [id number] 08:36:00 Test Item Value Reference Range Comments Accuchek (test code=ACU) 141 mg/dL 70-110 [id number] 08:36:00 Test Item Value Reference Range Comments Accuchek (test code=ACU) 149 mg/dL 70-110 Culture, [id number] 14:21:00 Test Item Value Reference Range Comments Culture, Blood (test code=BC) NG5 [id number] 06:55:00 Test Item Value Reference Range Comments Chemistry (test code=CREATT) 0.74 mg/dL 0.6-1.1 Chemistry (test 75 Reference Range for Estimated code=EGFRMDRD) GFR: Greater than 90 mL/min/1.73 m2NOTE:The MDRD equation has not been validated for use with theelderly (over 70 years of age), women, patientswith serious comorbid condition or persons with extremes ofbody size, muscle mass, or nutritional status. [id number] 06:24:00 Test Item Value Reference Range Comments Hematology (test code=HGBT) 8.2 g/dL 12.0-16.0 Hematology (test code=HCTT) 24.4 % 36.0-47.0 Hematology (test code=PLTT) 376 thou/uL 130-400 [id number] 06:17:00 Test Item Value Reference Range Comments Accuchek (test code=ACU) 106 mg/dL 70-110 [id number] 00:16:00 Test Item Value Reference Range Comments Accuchek (test code=ACU) 144 mg/dL 70-110 [id number] 17:28:00 Test Item Value Reference Range Comments Accuchek (test code=ACU) 137 mg/dL 70-110 [id number] 11:35:00 Test Item Value Reference Range Comments Accuchek (test code=ACU) 170 mg/dL 70-110 [id number] 06:13:00 Test Item Value Reference Range Comments Accuchek (test code=ACU) 114 mg/dL 70-110 [id number] 00:24:00 Test Item Value Reference Range Comments Accuchek (test code=ACU) 135 mg/dL 70-110 [id number] 07:25:00 Test Item Value Reference Range Comments Chemistry (test code=CREATT) 0.71 mg/dL 0.6-1.1 Chemistry (test 78 Reference Range for Estimated code=EGFRMDRD) GFR: Greater than 90 mL/min/1.73 m2NOTE:The MDRD equation has not been validated for use with theelderly (over 70 years of age), women, patientswith serious comorbid condition or persons with extremes ofbody size, muscle mass, or nutritional status. [id number] 07:02:00 Test Item Value Reference Range Comments Hematology (test code=HGBT) 8.7 g/dL 12.0-16.0 Hematology (test code=HCTT) 26.6 % 36.0-47.0 Hematology (test code=PLTT) 366 thou/uL 130-400 [id number] 06:43:00 Test Item Value Reference Range Comments Accuchek (test code=ACU) 102 mg/dL 70-110 [id number] 00:31:00 Test Item Value Reference Range Comments Accuchek (test code=ACU) 143 mg/dL 70-110 [id number] 17:36:00 Test Item Value Reference Range Comments Accuchek (test code=ACU) 122 mg/dL 70-110 [id number] 11:11:00 Test Item Value Reference Range Comments Accuchek (test code=ACU) 165 mg/dL 70-110 [id number] 09:40:00 Test Item Value Reference Range Comments Accuchek (test code=ACU) 95 mg/dL 70-110 [id number] 01:58:00 Test Item Value Reference Range Comments Accuchek (test code=ACU) 140 mg/dL 70-110 [id number] 18:19:00 Test Item Value Reference Range Comments Accuchek (test code=ACU) 133 mg/dL 70-110 [id number] 13:00:00 Test Item Value Reference Range Comments Accuchek (test code=ACU) 155 mg/dL 70-110 [id number] 05:59:00 Test Item Value Reference Range Comments [...] 5-34 Chemistry (test code=ALT) 16 U/L 8-55 [id number] 05:46:00 Test Item Value Reference Range Comments Accuchek (test code=ACU) 166 mg/dL 70-110 Aooeslefku0773-57-15 05:31:00 Test Item Value Reference Range Comments Hematology (test code=HGBT) 8.8 g/dL 12.0-16.0 Hematology (test code=HCTT) 25.8 % 36.0-47.0 Hematology (test code=PLTT) 339 thou/uL 130-400 [id number] 05:28:00 Test Item Value Reference Range Comments [...] 0.0-0.7 Hematology (test code=BASO#) 0.0 thou/uL 0.0-0.2 [id number] 05:25:00 Test Item Value Reference Range Comments Accuchek (test code=ACU) 151 mg/dL 70-110 [id number] 18:43:00 Test Item Value Reference Range Comments Chemistry (test 0.021 ng/mL < 0.028 code=TROPI-T) Reference Range 0.00 - 0.028 ng/mL Negative 0.029 - 0.29 ng/mL Indeterminate Greater or Equal to 0.3 ng/mL Strongly suggests [facility] [id number] 18:02:00 Test Item Value Reference Range Comments Accuchek (test code=ACU) 127 mg/dL 70-110 [id number] 16:42:00 Test Item Value Reference Range Comments Accuchek (test code=ACU) 166 mg/dL 70-110 [id number] 13:59:00 Test Item Value Reference Range Comments Chemistry (test 0.016 ng/mL < 0.028 code=TROPI-T) Reference Range 0.00 - 0.028 ng/mL Negative 0.029 - 0.29 ng/mL Indeterminate Greater or Equal to 0.3 ng/mL Strongly suggests [facility] [id number] 13:37:00 Test Item Value Reference Range Comments Chemistry (test 0.7 ng/mL 0-6.6 code=CKMBM-T) Chemistry (test 0.010 ng/mL < 0.028 code=TROPI-T) Reference Range 0.00 - 0.028 ng/mL Negative 0.029 - 0.29 ng/mL Indeterminate Greater or Equal to 0.3 ng/mL Strongly suggests [facility] [id number] 13:28:00 Test Item Value Reference Range Comments Coagulation (test 16.3 SEC 12.0-14.7 code=PT-T) Coagulation (test 1.3 ATTENTION: READ code=INR) CAREFULLY -The recommended therapeutic ranges for oral anticoagulanttreatments are: Low Intensity: 1.5 - 2.0 Moderate Intensity: 2.0 - 3.0 High Intensity (1): 2.5 - 3.5 High Intensity (2): 3.0 - 4.0 CRITICAL: > 4.0 Coagulation (test 34.2 SEC 22.9-36.1 code=PTT) Anticoagulant? OTHER; SEE [id number] 13:23:00 Test Item Value Reference Range Comments [...] 19 U/L 8-55 Chemistry - BNP, HgbA1c, [id number] 13:22:00 Test Item Value Reference Range Comments Chemistry - BNP, HgbA1c, PTHi (test code=BNP) 523.5 pg/mL 0-100 [id number] 12:54:00 Test Item Value Reference Range Comments [...] 0.0-0.7 Hematology (test code=BASO#) 0.0 thou/uL 0.0-0.2 [id number] 11:20:00 Test Item Value Reference Range Comments Accuchek (test code=ACU) 178 mg/dL 70-110 [id number] 06:10:00 Test Item Value Reference Range Comments Accuchek (test code=ACU) 141 mg/dL 70-110 [id number] 00:31:00 Test Item Value Reference Range Comments Accuchek (test code=ACU) 135 mg/dL 70-110 [id number] 16:48:00 Test Item Value Reference Range Comments Accuchek (test code=ACU) 129 mg/dL 70-110 [id number] 11:16:00 Test Item Value Reference Range Comments Accuchek (test code=ACU) 161 mg/dL 70-110 [id number] 06:17:00 Test Item Value Reference Range Comments Accuchek (test code=ACU) 134 mg/dL 70-110 [id number] 00:52:00 Test Item Value Reference Range Comments Accuchek (test code=ACU) 137 mg/dL 70-110 [id number] 18:38:00 Test Item Value Reference Range Comments Accuchek (test code=ACU) 145 mg/dL 70-110 [id number] 12:49:00 Test Item Value Reference Range Comments Accuchek (test code=ACU) 118 mg/dL 70-110 [id number] 06:25:00 Test Item Value Reference Range Comments [...] 3.4-4.8 Chemistry (test code=PHOS) 2.9 mg/dL 2.3-4.7 [id number] 06:25:00 Test Item Value Reference Range Comments Chemistry (test code=MG) 1.9 mg/dL 1.6-2.6 [id number] 06:08:00 Test Item Value Reference Range Comments Hematology (test code=HGBT) 9.3 g/dL 12.0-16.0 Hematology (test code=HCTT) 28.4 % 36.0-47.0 Hematology (test code=PLTT) 377 thou/uL 130-400 Qggqrtxy7762-01-09 05:50:00 Test Item Value Reference Range Comments Accuchek (test code=ACU) 125 mg/dL 70-110 [id number] 23:30:00 Test Item Value Reference Range Comments Accuchek (test code=ACU) 117 mg/dL 70-110 [id number] 18:12:00 Test Item Value Reference Range Comments Accuchek (test code=ACU) 133 mg/dL 70-110 Culture, [id number] 14:36:00 Test Item Value Reference Range Comments Culture, Urine (test code=URC) NG36 [id number] 11:32:00 Test Item Value Reference Range Comments Accuchek (test code=ACU) 96 mg/dL 70-110 Ieujvite9806-17-34 05:52:00 Test Item Value Reference Range Comments Accuchek (test code=ACU) 100 mg/dL 70-110 [id number] 05:02:00 Test Item Value Reference Range Comments [...] 83-110 Chemistry (test code=CA) 8.1 mg/dL 7.8-10.44 [id number] 04:53:00 Test Item Value Reference Range Comments [...] 0.0-0.7 Hematology (test code=BASO#) 0.0 thou/uL 0.0-0.2 [id number] 00:26:00 Test Item Value Reference Range Comments Accuchek (test code=ACU) 116 mg/dL 70-110 [id number] 18:27:00 Test Item Value Reference Range Comments Accuchek (test code=ACU) 132 mg/dL 70-110 [id number] 12:06:00 Test Item Value Reference Range Comments Accuchek (test code=ACU) 148 mg/dL 70-110 [id number] 06:07:00 Test Item Value Reference Range Comments Accuchek (test code=ACU) 152 mg/dL 70-110 [id number] 05:34:00 Test Item Value Reference Range Comments Chemistry (test 0.036 ng/mL < 0.028 code=TROPI-T) Reference Range 0.00 - 0.028 ng/mL Negative 0.029 - 0.29 ng/mL Indeterminate Greater or Equal to 0.3 ng/mL Strongly suggests [facility] [id number] 03:40:00 Test Item Value Reference Range Comments [...] to floor with foleyUrine Source: Urine Snow [id number] 02:18:00 Test Item Value Reference Range Comments [...] 5-34 Chemistry (test code=ALT) 41 U/L 8-55 [id number] 02:14:00 Test Item Value Reference Range Comments Chemistry (test 0.041 ng/mL < 0.028 code=TROPI-T) Reference Range 0.00 - 0.028 ng/mL Negative 0.029 - 0.29 ng/mL Indeterminate Greater or Equal to 0.3 ng/mL Strongly suggests [facility] [id number] 01:49:00 Test Item Value Reference Range Comments [...]
[2018-02-18] MEDS ORDERED: NA CHLORIDE 0.9% 500 ML ONE ×2 (13:20→16:09)
--- NOTE | 2018-02-18 14:14 | RAD REPORT ---
EXAM DESCRIPTION: CT - Abdomen Pelvis Wo Contrast - 02/18/2018 1:47 pm CLINICAL HISTORY: Abdominal pain for 2 weeks COMPARISON: April 2017 TECHNIQUE: Computed axial tomography of the abdomen and pelvis was obtained. IV and oral contrast we re not requested. All CT scans are performed using dose optimization technique as appropriate and may include automated exposure control or mA/KV adjustment according to patient size. FINDINGS: The evaluation of solid organs, vessels and bowel is limited secondary to the lack of con trast administration. The liver, spleen, pancreas, adrenals and kidneys appear grossly normal. A gastrostomy tube is in place. There is no evidence of diverticulitis. Spondylosis involves lumbar spine resulting in spinal stenosis Mild left pleural thickening is seen. Mild tree-in-bud opacities are present within the right lower l obe IMPRESSION: No acute abnormality is displayed involving the abdomen Mild tree-in-bud opacities within the right lower lobe may indicate an atypical infection or pneumoni tis
--- NOTE | 2018-02-18 14:18 | RAD REPORT ---
EXAM DESCRIPTION: Maria De Jesus Single View02/18/2018 2:03 pm CLINICAL HISTORY: abd pain COMPARISON: September 2017 FINDINGS: Diffuse reticulonodular opacities within the right lung are unchanged. The left lung appears clear of acute infiltrate. The heart is mildly enlarged
[2018-02-18 14:33] LABS: Absolute Monocytes 0.9 K/uL (0.1-1.3)
[2018-02-18 14:40] LABS: Absolute Lymphocytes (CBC) 0.9 K/uL (0.7-4.9); Absolute Neutrophil 6.7 K/uL (1.8-8.0); Basophils % 0.7 % (0-1.3); Hematocrit 33.2 % (36.0-45.0); Lymphocytes % 9.9 % (15.3-44.8); MCH 30.1 pg (27.0-35.0); MCV 88.6 fL (80-100); MPV 8.1 fL (7.6-11.3); Monocytes % 10.1 % (3.3-12.3); RBC Red Blood Cell Count 3.75 M/uL (3.86-4.86)
[2018-02-18 14:42] LABS: Albumin 3.1 g/dL (3.4-5.0); Bilirubin Direct 0.1 mg/dL (0-0.2); Bilirubin Total 0.7 mg/dL (0.2-1.0); Potassium 4.7 mmol/L (3.5-5.1); Protein, Total 7.5 g/dL (6.4-8.2)
[2018-02-18] MEDS ORDERED: AZITHROMYCIN 500 MG/250 ML BAG ONE (14:46)
[2018-02-18] MEDS ORDERED: CEFTRIAXONE/SWI 1gm 1 GM/10 ML SYR ONE (14:46)
[2018-02-18 15:13] LABS: Blood Morphology Comment NOT SEEN (NOT SEEN); Platelet Estimate ADEQ; Urine White Blood Cell Casts OK
--- NOTE | 2018-02-18 15:15 | EDPHYS ---
Physician Documentation [facility] Name: Ghislaine Sanchez Age: 87 yrs Sex: Female : 1930 Arrival Date: 02/18/2018 Time: 12:54 Bed 18 Private MD: ED Physician Jose Fuentes HPI: 02/18 13:46 This 87 yrs old Female presents to ER via EMS with complaints of abdominal rn pain. 14:05 The patient presents with abdominal pain in the left upper quadrant. Onset: The rn symptoms/episode began/occurred 2 week(s) ago. The symptoms do not radiate. Associated signs and symptoms:. Modifying factors: The symptoms are alleviated by nothing, the symptoms are aggravated by nothing. Severity of pain: At its worst the pain was mild in the emergency department the pain is unchanged. The patient has experienced similar episodes in the past. Reports a few weeks of abd pain, seen twice by GI, [facility] office, given abx once, no change, seen again and told was acid reflux, but unable to fill meds due to insurance issues, comes in for persistent abd pain located around feeding tube, no fever, + generalized weakness and sleepiness, no vomiting, also report hard to use feeding tube as of today. . Historical: - Allergies: 13:04 Sulfa (Sulfonamide Antibiotics); em - Home Meds: 13:04 levothyroxine 25 mcg tab 1 tab once daily [Active]; Eliquis 2.5 mg Oral tab 1 tab 2 em times per day [Active]; clonazepam 0.5 mg Oral tab 1 tab daily [Active]; bupropion HCl 100 mg Oral tab 1 tab [Active]; Administer all PO tabs/caps to G-tube [Active]; escitalopram oxalate 10 mg oral tab 1 tab once daily [Active]; temazepam 15 mg Oral cap as needed [Active]; Multaq 400 mg Oral tab 1 tab 2 times per day [Active]; - PMHx: 13:04 peptic ulcer; ADD/ADHD; Anemia; Atrial Fib; CVA; Dementia; DYSPHAGIA; High Cholesterol; em Hypertension; Hypothyroidism; Myocardial infarction; - Immunization history:: Adult Immunizations up to date. - Social history:: Smoking status: unknown. - Ebola Screening: : Patient negative for fever greater than or equal to 101.5 degrees Fahrenheit, and additional compatible Ebola Virus Disease symptoms Patient denies exposure to infectious person Patient denies travel to an Ebola-affected area in the 21 days before illness onset No symptoms or risks identified at this time. - Family history:: not pertinent. - Hospitalizations: : No recent hospitalization is reported. ROS: 14:05 Constitutional: Negative for fever, chills, and weight loss, Eyes: Negative for injury, rn pain, redness, and discharge, Cardiovascular: Negative for chest pain, palpitations, and edema, Respiratory: Negative for shortness of breath, cough, wheezing, and pleuritic chest pain, Abdomen/GI: Negative for vomiting, diarrhea, and constipation, MS/Extremity: Negative for injury and deformity, Skin: Negative for injury, rash, and discoloration, Neuro: Negative for headache, numbness, tingling, and seizure. Exam: 14:05 Constitutional: This is a well developed, well nourished patient who is somnolent, but rn awakens to voice Head/Face: Normocephalic, atraumatic. Eyes: Pupils equal round and reactive to light, extra-ocular motions intact. Lids and lashes normal. Conjunctiva and sclera are non-icteric and not injected. Cornea within normal limits. Periorbital areas with no swelling, redness, or edema. ENT: dry MM Cardiovascular: Regular rate and rhythm with a normal S1 and S2. No gallops, murmurs, or rubs. Normal PMI, no JVD. No pulse deficits. Respiratory: Lungs have equal breath sounds bilaterally, clear to auscultation and percussion. No rales, rhonchi or wheezes noted. No increased work of breathing, no retractions or nasal flaring. Abdomen/GI: soft, mild tenderness LUQ, seems to be isolated around feeding tube stoma, mild erythema of surrounding stoma skin, no purulence, no fluctuance MS/ Extremity: Pulses equal, no cyanosis. Neurovascular intact. Neuro: Somnolent, awakens to voice, moves all 4 extremities but with diffuse weakness. Vital Signs: 13:04 BP 93 / 57; Pulse 88; Resp 18; Temp 98.3; Pulse Ox 96% on R/A; Weight 65.77 kg; Height em 5 ft. 6 in. (167.64 cm); Pain 1/10; 14:20 BP 104 / 50; Pulse 84; Resp 16; Pulse Ox 97% on R/A; em 15:15 BP 100 / 57; Pulse 87; Resp 20; Pulse Ox 98% on R/A; em 15:53 BP 97 / 56; Pulse 84; em 16:00 BP 88 / 56; Pulse 82; Resp 17; Pulse Ox 98% on R/A; Pain 0/10; em 17:00 BP 106 / 54; Pulse 92; Resp 18; Pulse Ox 99% on R/A; Pain 0/10; em 13:04 Body Mass Index 23.40 (65.77 kg, 167.64 cm) em MDM: 13:03 Patient medically screened. rn 15:12 Differential diagnosis: bowel obstruction, gastritis, gastroesophageal reflux disease, rn non-specific abd pain, Peptic Ulcer Disease, urinary tract infection, pneumonia. Data reviewed: vital signs, nurses notes, lab test result(s), EKG, radiologic studies, CT scan, plain films, and as a result, I will admit patient. Counseling: I had a detailed discussion with the patient and/or guardian regarding: the historical points, exam findings, and any diagnostic results supporting the discharge/admit diagnosis, lab results, radiology results, the need for further work-up and treatment in the hospital. Response to treatment: the patient's symptoms have mildly improved after treatment, and as a result, I will admit patient. Admission orders: after a detailed discussion of the patient's condition and case, the admit orders are written by me. ED course: Pt now reports mild cough recently, cxr and ct shows possible RLL pneumonia, given weakness will admit to Dr. Roach, urine clear. . 15:45 ED course: Pt initially admitted to Dr. Roach, she evaluated patient, had discussion rn with patient and family, they decided together to be discharged home with generic reglan, she determined opacities in right lung chronic, did not recommend outpt treatment with abx. . 02/18 13:14 Order name: Basic Metabolic Panel; Complete Time: 14:44 rn 02/18 13:14 Order name: CBC with Diff rn 02/18 13:14 Order name: Hepatic Function; Complete Time: 14:44 rn 02/18 13:14 Order name: Lipase; Complete Time: 14:44 rn 02/18 13:14 Order name: Urine Microscopic Only rn 02/18 13:14 Order name: Procalcitonin; Complete Time: 15:12 rn 02/18 13:14 Order name: Lactate; Complete Time: 15:12 rn 02/18 13:14 Order name: CT Abd/Pelvis - Without Cont; Complete Time: 14:23 rn 02/18 13:14 Order name: XRAY Chest (1 view); Complete Time: 14:23 rn 02/18 13:14 Order name: Blood Culture Adult (2) rn 02/18 13:14 Order name: Urine Culture rn 02/18 14:41 Order name: CBC Smear Scan EDMS 02/18 15:13 Order name: Urine Dipstick--Ancillary (enter results) bd 02/18 13:14 Order name: IV Start; Complete Time: 14:20 rn 02/18 13:14 Order name: Labs collected and sent; Complete Time: 14:20 rn 02/18 13:14 Order name: Urine Dipstick-Ancillary (obtain specimen); Complete Time: 14:51 rn 02/18 13:14 Order name: EKG; Complete Time: 13:15 rn 02/18 13:14 Order name: EKG - Nurse/Tech; Complete Time: 14:19 rn Administered Medications: 14:19 Drug: NS 0.9% 500 ml Route: IV; Rate: bolus; Site: right forearm; em 16:26 Follow up: IV Status: Completed infusion; IV Intake: 500ml em 15:00 Drug: Rocephin - (cefTRIAXone) 1 grams Route: IVPB; Infused Over: 30 mins; Site: right iw forearm; 15:28 Follow up: IV Status: Completed infusion; IV Intake: 10ml em 15:10 Drug: AZITHromycin 500 mg Route: IVPB; Infused Over: 1 hrs; Site: right forearm; iw 16:25 Follow up: Response: No adverse reaction; IV Status: Completed infusion; IV Intake: em 250ml 16:10 Drug: NS 0.9% 500 ml Route: IV; Rate: bolus; Site: right forearm; em 17:18 Follow up: IV Status: Completed infusion; IV Intake: 500ml em Disposition: 02/18/18 15:48 Discharged to Home. Impression: Unspecified abdominal pain, Weakness, Gastro-esophageal reflux disease. - Condition is Stable. - Discharge Instructions: Abdominal Pain, Adult, Gastroesophageal Reflux Disease, Adult, Weakness. - Prescriptions for metoclopramide HCl 5 mg/5 mL Oral solution - take 5 milliliter by ORAL route 4 times per day 30 minutes before meals and at bedtime; 600 milliliter. - Medication Reconciliation Form, Thank You Letter, Antibiotic Education, Prescription Opioid Use form. - Follow up: Private Physician; When: As needed; Reason: Recheck today's complaints, Re-evaluation by your physician. - Problem is an ongoing problem. - Symptoms have improved. Signatures: Dispatcher [employer] EDDillon Neely, MEAT INSPECTOR MEAT INSPECTOR em Linsey Morfin, RN RN Jose Reyes MD MD corn detasseler: (The following items were deleted from the chart) 15:46 15:14 Hospitalization Ordered by Luisa Roach MD for Inpatient Admission. Preliminary rn diagnosis is Pneumonia; Weakness; Dehydration. Bed requested for Telemetry/MedSurg (Inpatient). Status is Inpatient Admission. Condition is Stable. Problem is new. Symptoms have improved. UTI on Admission? No. rn 17:21 15:48 02/18/2018 15:48 Discharged to Home. Impression: Unspecified abdominal pain; em Weakness; Gastro-esophageal reflux disease. Condition is Stable. Forms are Medication Reconciliation Form, Thank You Letter, Antibiotic Education, Prescription Opioid Use. Follow up: Private Physician; When: As needed; Reason: Recheck today's complaints, Re-evaluation by your physician. Problem is an ongoing problem. Symptoms have improved. rn
--- NOTE | 2018-02-18 15:15 | ER ---
Nurse's Notes [facility] Name: Ghislaine Sanchez Age: 87 yrs Sex: Female : 1930 Arrival Date: 02/18/2018 Time: 12:54 Bed 18 Private MD: Diagnosis: Unspecified abdominal pain;Weakness;Gastro-esophageal reflux disease Presentation: 02/18 12:54 Presenting complaint: EMS states: called out for ABD pain x 2 weeks, was evaluated by em this week, family concerned for confusion and distention, pt has PEG tube in placed. Transition of care: patient was not received from another setting of care. Onset of symptoms was February 04, 2018. Risk Assessment: Do you want to hurt yourself or someone else? Patient reports no desire to harm self or others. Initial Sepsis Screen: Does the patient meet any 2 criteria? No. Patient's initial sepsis screen is negative. Does the patient have a suspected source of infection? No. Patient's initial sepsis screen is negative. 12:54 Method Of Arrival: EMS: [facility] em 12:54 Care prior to arrival: None. em 12:54 Acuity: SHELDON 3 iw Triage Assessment: 13:04 General: Appears in no apparent distress. comfortable, Behavior is calm, cooperative. em Pain: Complains of pain in abdomen Pain currently is 1 out of 10 on a pain scale. Historical: - Allergies: 13:04 Sulfa (Sulfonamide Antibiotics); em - Home Meds: 13:04 levothyroxine 25 mcg tab 1 tab once daily [Active]; Eliquis 2.5 mg Oral tab 1 tab 2 em times per day [Active]; clonazepam 0.5 mg Oral tab 1 tab daily [Active]; bupropion HCl 100 mg Oral tab 1 tab [Active]; Administer all PO tabs/caps to G-tube [Active]; escitalopram oxalate 10 mg oral tab 1 tab once daily [Active]; temazepam 15 mg Oral cap as needed [Active]; Multaq 400 mg Oral tab 1 tab 2 times per day [Active]; - PMHx: 13:04 peptic ulcer; ADD/ADHD; Anemia; Atrial Fib; CVA; Dementia; DYSPHAGIA; High Cholesterol; em Hypertension; Hypothyroidism; Myocardial infarction; - Immunization history:: Adult Immunizations up to date. - Social history:: Smoking status: unknown. - Ebola Screening: : Patient negative for fever greater than or equal to 101.5 degrees Fahrenheit, and additional compatible Ebola Virus Disease symptoms Patient denies exposure to infectious person Patient denies travel to an Ebola-affected area in the 21 days before illness onset No symptoms or risks identified at this time. - Family history:: not pertinent. - Hospitalizations: : No recent hospitalization is reported. Screenin:05 Abuse screen: no apparent signs noted. Nutritional screening: No deficits noted. em Tuberculosis screening: No symptoms or risk factors identified. Fall Risk None identified. Assessment: 13:09 General: Appears in no apparent distress. comfortable, Behavior is calm, cooperative. em Pain: Complains of pain in abdomen Pain currently is 1 out of 10 on a pain scale. Neuro: Level of Consciousness is awake, alert, obeys commands, Oriented to person, place, time. Cardiovascular: Capillary refill < 3 seconds Patient's skin is warm and dry. Respiratory: Airway is patent Respiratory effort is even, unlabored, Respiratory pattern is regular, symmetrical, Breath sounds are clear bilaterally. GI: Abdomen is round distended, Bowel sounds present X 4 quads. Abd is soft and non tender X 4 quads. Parent/caregiver reports the patient having nausea, vomiting. : No signs and/or symptoms were reported regarding the genitourinary system. EENT: No signs and/or symptoms were reported regarding the EENT system. Derm: Skin is intact, Skin is pink, warm \T\ dry. Musculoskeletal: Range of motion: intact in all extremities. 13:25 Reassessment: Patient appears in no apparent distress at this time. I agree with above iw assessment by Dillon Braden LVN. 14:40 Reassessment: Patient appears in no apparent distress at this time. Patient and/or em family updated on plan of care and expected duration. Pain level reassessed. Patient is alert, oriented x 3, equal unlabored respirations, skin warm/dry/pink. family at bedside. 15:00 Reassessment: Patient appears in no apparent distress at this time. Patient and/or iw family updated on plan of care and expected duration. Pain level reassessed. Patient is alert, oriented x 3, equal unlabored respirations, skin warm/dry/pink. changed pt brief, aspirated PEG tube, gastric contents returned, flushed with 30ml water Patient denies pain at this time. 16:00 Reassessment: Patient appears in no apparent distress at this time. Patient and/or em family updated on plan of care and expected duration. Pain level reassessed. Patient is alert, oriented x 3, equal unlabored respirations, skin warm/dry/pink. pending completion of antibiotic, pt BP 88/56, RH 82, 98% RA, denies pain, Dr. Fuentes notified of BP, new orders received for repeat NS 500 ml bolus. 17:20 Reassessment: report called to Herbert at [facility]. em Vital Signs: 13:04 BP 93 / 57; Pulse 88; Resp 18; Temp 98.3; Pulse Ox 96% on R/A; Weight 65.77 kg; Height em 5 ft. 6 in. (167.64 cm); Pain 1/10; 14:20 BP 104 / 50; Pulse 84; Resp 16; Pulse Ox 97% on R/A; em 15:15 BP 100 / 57; Pulse 87; Resp 20; Pulse Ox 98% on R/A; em 15:53 BP 97 / 56; Pulse 84; em 16:00 BP 88 / 56; Pulse 82; Resp 17; Pulse Ox 98% on R/A; Pain 0/10; em 17:00 BP 106 / 54; Pulse 92; Resp 18; Pulse Ox 99% on R/A; Pain 0/10; em 13:04 Body Mass Index 23.40 (65.77 kg, 167.64 cm) em ED Course: 12:54 Patient arrived in ED. em 13:03 Jose Fuentes MD is Attending Physician. rn 13:04 Arm band placed on. em 13:09 Patient has correct armband on for positive identification. Bed in low position. Call em light in reach. Side rails up X2. Adult w/ patient. 13:10 Triage completed. iw 13:11 Dillon Braden LVN is Primary Nurse. em 13:[address] via stretcher. cw1 13:46 CT completed. Patient tolerated procedure well. Patient moved back from CT. bq 13:47 CT Abd/Pelvis - Without Cont In Process Unspecified. EDMS 13:51 EKG done, by ED staff, reviewed by Jose Fuentes MD. jb1 13:58 X-ray completed. Portable x-ray completed in exam room. Patient tolerated procedure la2 well. 14:03 XRAY Chest (1 view) In Process Unspecified. EDMS 14:15 Initial lab(s) drawn, by me, sent to lab. First set of blood cultures drawn by me, mh5 Second set of blood cultures drawn by me. 14:20 Inserted saline lock: 22 gauge in right forearm, using aseptic technique. Blood mh5 collected. 14:50 Urine collected: straight cath specimen. Straight cath inserted, using sterile iw technique, 16 Fr. Returned clear yellow urine. Patient tolerated well. 15:14 Luisa Roach MD is Hospitalizing Provider. rn 17:16 No provider procedures requiring assistance completed. IV discontinued, intact, em bleeding controlled, No redness/swelling at site. Pressure dressing applied. Administered Medications: 14:19 Drug: NS 0.9% 500 ml Route: IV; Rate: bolus; Site: right forearm; em 16:26 Follow up: IV Status: Completed infusion; IV Intake: 500ml em 15:00 Drug: Rocephin - (cefTRIAXone) 1 grams Route: IVPB; Infused Over: 30 mins; Site: right iw forearm; 15:28 Follow up: IV Status: Completed infusion; IV Intake: 10ml em 15:10 Drug: AZITHromycin 500 mg Route: IVPB; Infused Over: 1 hrs; Site: right forearm; iw 16:25 Follow up: Response: No adverse reaction; IV Status: Completed infusion; IV Intake: em 250ml 16:10 Drug: NS 0.9% 500 ml Route: IV; Rate: bolus; Site: right forearm; em 17:18 Follow up: IV Status: Completed infusion; IV Intake: 500ml em Intake: 15:28 IV: 10ml; Total: 10ml. em 16:25 IV: 250ml; Total: 260ml. em 16:26 IV: 500ml; Total: 760ml. em 17:18 IV: 500ml; Total: 1260ml. em Outcome: 15:14 Decision to Hospitalize by Provider. rn 15:48 Discharge ordered by . rn 17:20 Discharged to home via wheelchair. em 17:20 Condition: good 17:20 Discharge instructions given to patient, family, Instructed on discharge instructions, follow up and referral plans. medication usage, Demonstrated understanding of instructions, follow-up care, medications, Prescriptions given X 1. 17:21 Patient left the ED. em Signatures: Dispatcher [employer] EDMS Nate Watts jb1 Janie Aguilar, Dillon, ADVERTISING PROJECT MANAGER ADVERTISING PROJECT MANAGER em Linsey Morfin, Jose Vega RN, MD MD rn Woodley, Brandi cw1 Jovita Brady 5 Lela Escalante2 Corrections: (The following items were deleted from the chart) 13:11 12:54 Presenting complaint: EMS states: called out for ABD pain x 2 weeks, have was em evaluated by this week, family concerned for confusion and distention, pt has PEG tube in placed em
[2018-02-18 15:24] LABS: Urine Bacteria NONE SEEN /HPF (<20); Urine Culture Reflex Order NOT NEEDED
[2018-02-18 15:35] LABS: Urine Blood NEGATIVE (NEG); Urine Glucose NEGATIVE (NEG); Urine Protein NEGATIVE (NEG); Urine Specific Gravity 1.015 (1.005-1.030); Urine pH 7.5 (5.0-7.0)
--- NOTE | 2018-02-18 16:23 | P.CNS ---
Date of Consult: 02/18/18 HPI: This is a 87-year-old female with significant past medical history who presented to the ED from the [facility]. Patient has 24 hr care provider bottle which 1 care provider this morning noted that patient has been having increased output from her PEG tube and has been having some abdominal pain and distention for past 2 days. Patient's care provider noted that patient recently was seen by GI doctor and was prescribed medication for reflux however has not been able to get that filled due to insurance denial. Patient was given medication last night and this morning however was not able to dissolve and had increased amount of residual noted in the PEG tube. Patient has also been complaining of abdominal pain intermittently that has been going on chronically. Patient chronic pain might be related to PEG tube placement her GI. Patient had an extensive workup done here about a month ago with the EGD which was consistent with gastritis and hiatal hernia. Patient at that time was recommended to start taking Protonix and continue monitoring and to have a colonoscopy. However patient's family refused for colonoscopy and thus patient was followed up with GI in about 2-4 weeks post discharge and had no complications noted post hospitalization. Patient also has a history of generalized weakness for about 1 year now. Patient has been chronically debilitated and has been acutely declining in her physical status now. Patient does have therapy at the [facility] however was discontinued from therapy for past couple of weeks due to patient inability to participate in therapy. Patient however will be resuming her therapy starting Tuesday for her care providers. Patient was also evaluated in rehab here for speech however due to having noncompliance with move appointments and doing fairly well patient was discharged from speech therapy here in the hospital as well. Patient was referred over to admission of for generalized weakness and increased output from her PEG tube. In the ER patient had extensive lab work done along with imaging study including abdominal CT and chest x-ray. Lab work was within normal limits abdominal CT was also within normal limits without any concerns for any acute abdominal process. Patient was however showing right lower lobe opacity which appears to be chronic in nature and did seem to have the same opacity during last hospitalization which has unchanged. Vital sign: Stable Physical exam: General: Alert and oriented x3 chronically debilitated patient cachectic- appearing CVS: Regular rate and rhythm no murmurs were heard Lungs: Clear to auscultate bilaterally no wheezing rales or rhonchi Abdomen: PEG tube in place. No storm all erythema and tenderness or swelling noted. No abdominal distention noted. Positive bowel sounds in all 4 quadrants Extremity: Positive pulse in all 4 extremity Assessment and plan: 87-year-old female referred to admission for generalized weakness and increased output from her PEG tube.When I evaluated the patient in the ER patient was alert and oriented x3 and had no complaints to offer. Patient stated that her abdominal pain had resolved. The nurse at bedside stated that patient has PEG tube has been functioning well. No complaints were offered from the family member for the patient at the bedside. Caregiver Annia was contacted at that time who noted that the patient has been having increased output due to not having her reflux medication. Annia was notified that patient can picking machine operator Reglan from [employer] for 4 dollars and can be started on it tonight. Caregiver and patient's family member agreed on the plan and given the fact that patient generalized weakness is chronic and has rehab already ordered at the independent nursing facility patient did not meet any admission criteria and thus was discharged home from the ER itself. Patient was also asked to follow up with GI in about 1 week post discharge to ensure that her reflux medication is working.
[2018-02-18 17:25] VITALS: TEMP 98.3
[2018-02-18 17:30] VITALS: BP 106/54; O2SAT 99
--- NOTE | 2018-02-20 07:46 | EKG ---
Test Date: 2018-02-18 Test Time: 13:25:45 Policy Advisor: MB MEASUREMENT RESULTS: Intervals: Rate: 83 NE: 260 QRSD: 144 QT: 442 QTc: 519 [place]: P: 47 NE: 260 QRS: -75 T: 44 INTERPRETIVE STATEMENTS: Sinus rhythm with 1st degree AV block Possible Left atrial enlargement Left axis deviation Left bundle branch block Abnormal ECG Compared to ECG 04/28/2017 07:36:14 Left-axis deviation now present Left bundle-branch block now present Sinus tachycardia no longer present Electronically Signed On 02-20-18 07:45:58 CDT by Ambrose Montenegro
== END 2018-02-18 17:21 | disposition home or self-care (01) ==
LOC: ER 12:52 → ERHOLD 15:19 → UNDOADMIN 15:19 → ER 17:21
DX: K21.9 Gastro-esophageal reflux disease without esophagitis (principal); R53.1 Weakness; I10 Essential (primary) hypertension; E03.9 Hypothyroidism, unspecified; E78.00 Pure hypercholesterolemia, unspecified; I48.91 Unspecified atrial fibrillation; I25.2 Old myocardial infarction; Z79.02 Long term (current) use of antithrombotics/antiplatelets; Z88.2 Allergy status to sulfonamides
CPT/HCPCS: 36415; 51702; 71045; 74176; 80048; 80076; 83605; 83690; 84145; 85025; 87040 ×2; 87086; 93005; 96361; 96365; 99285; J0456; J0696; 81003; 81015; 87088